=== PATIENT | female | born 1940 ===

== ENCOUNTER 2017-11-07 07:46 | Day surgery (SDC) | payer MEDICAID ==
[2017-11-07] MEDS ORDERED: NORVASC PO ONE (10:00)
--- NOTE | 2017-11-07 10:48 | Short Stay Summary ---
Short Stay Documentation Date of service: 11/07/17 - History Principal diagnosis: left thyroid nodules Past Surgical History: Other (partial right thyroidectomy 30 years ago for unknown cause, no cancer) - Allergies and Medications Current Medications: Allergies No Known Allergies Allergy (Unverified 11/07/17 08:12) Home Medications Medication Instructions Recorded Confirmed Last Taken Type Amlodipine Besylate [Norvasc] 5 mg PO DAILY 11/07/17 11/07/17 11/06/17 History 1 tab - Physical exam General appearance: no acute distress HEENT: Atraumatic, Mucous membr. moist/pink, Other (slight prominent left thyroid lobe) - Brief post op/procedure progress note Date of procedure: 11/07/17 Pre-op diagnosis: left thyroid nodules Post-op diagnosis: same Procedure: US thyroid biopsy Anesthesia: local Findings: dominent left thyroid nodule 3cm Surgeon: LEIGHANN CHEUNG Estimated blood loss: none Pathology: list (FNA, rotex biopsy) Specimen disposition: to lab Condition: stable - Disposition Condition at discharge: Good Disposition: DC-01 TO HOME OR SELFCARE Short Stay Discharge Plan Follow up with: EULOGIO CADE MD [Primary Care Provider] - 7 Days
[2017-11-07 11:08] VITALS: BP 120/68
--- NOTE | 2017-11-07 12:09 | Ultrasound Report ---
ULTRASOUND BIOPSY THYROID History: Enlarged thyroid, left thyroid nodules. Description of procedure: Informed consent was obtained. Sterile technique was utilized. 1% lidocaine was used for skin anesthesia. Using ultrasound guidance, one fine needle aspiration and one Rotex biopsy was obtained from the dominant left thyroid lobe nodule near the inferior pole measuring 3 cm. The samples were deemed adequate by the pathologist on site. No complications. Impression: Successful ultrasound-guided biopsy of the dominant left thyroid lobe mass.
== END 2017-11-07 11:45 | disposition home or self-care (01) ==
LOC: CATHLABREC 07:46 → EDSTATUS 09:00 → CATHLABREC 11:45
PROVIDERS: ATTEND Family Medicine
DX: E04.1 Nontoxic single thyroid nodule (principal); I10 Essential (primary) hypertension; Z79.899 Other long term (current) drug therapy
CPT/HCPCS: 60100; 76942; 88112; 88172; 88173; 88305